=== PATIENT | female | born 1940 | race Asian ===

== ENCOUNTER 2018-10-07 10:51 | Outpatient (CLI) | payer OTHER ==
[2018-10-07 11:53] LABS: POTASSIUM 3.8 mmol/L (3.6-5.2)
== END 2018-10-07 20:52 | disposition home or self-care (01) ==
LOC: LABW 10:51
DX: E03.9 Hypothyroidism, unspecified (principal); I10 Essential (primary) hypertension; E11.9 Type 2 diabetes mellitus without complications; E78.49 Other hyperlipidemia
CPT/HCPCS: 36415; 80053; 80061; 83036; 84443